=== PATIENT | female | born 1975 | race Two or more races ===

== ENCOUNTER 2016-10-10 14:35 | Emergency (ER) | payer OTHER ==
[~2016-10-10] VITALS: Ht 165.1 cm; Wt 59.4 kg
[2016-10-10] MEDS ORDERED: BACITRACIN-POLYMYXIN B TOPICAL OINT UD TOP ONE (16:37)
[2016-10-10 16:45] VITALS: BP 128/103
[2016-10-10] MEDS ORDERED: TETANUS-DIPTH-ACEL PERTUSSIS 0.5ML SYRG IM ONE (16:45)
[2016-10-10] MEDS ORDERED: KETOROLAC TROMETH 60MG/2ML VIAL IM ONE (17:00)
== END 2016-10-10 16:49 | disposition home or self-care (01) ==
LOC: ER 14:46
DX: S61.233A Puncture wound without foreign body of left middle finger without damage to nail, initial encounter (principal); S40.812A Abrasion of left upper arm, initial encounter; S50.812A Abrasion of left forearm, initial encounter; Z88.6 Allergy status to analgesic agent; Z88.8 Allergy status to other drugs, medicaments and biological substances; W54.0XXA Bitten by dog, initial encounter; Y93.89 Activity, other specified; Y99.8 Other external cause status; Y92.89 Other specified places as the place of occurrence of the external cause
CPT/HCPCS: 90471; 90715; 96372; 99284; J1885

== ENCOUNTER 2016-10-12 08:48 | Emergency (ER) | payer OTHER ==
[~2016-10-12] VITALS: Ht 165.1 cm; Wt 59.4 kg
[2016-10-12 10:12] VITALS: BP 124/84
== END 2016-10-12 10:21 | disposition home or self-care (01) ==
LOC: ER 08:52
DX: S61.237D Puncture wound without foreign body of left little finger without damage to nail, subsequent encounter (principal); Z48.01 Encounter for change or removal of surgical wound dressing; Z88.6 Allergy status to analgesic agent; Z88.1 Allergy status to other antibiotic agents; Z88.8 Allergy status to other drugs, medicaments and biological substances